=== PATIENT | female | born 1965 | race American Indian/Alaskan Native ===

== ENCOUNTER 2016-08-14 12:40 | Emergency (ER) | payer SELFPAY ==
[2016-08-14 13:12] VITALS: BP 113/69
--- NOTE | 2016-08-14 15:07 | Emergency Department Report ---
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 Patient denies inspiratory chest pain, productive sputum, syncope, chest pain, or nausea or vomiting. MD Complaint: shortness of breath, cough -: Gradual, week(s) Pain Scale: 0 Quality: burning, other (irritation) Consistency: intermittent Worsens With: coughing, inspiration, other (Beck exposure) Context: smoke/fume exposure Associated Symptoms: denies other symptoms - Related Data Previous Rx's Medication Instructions Recorded Last Taken Type ALBUTEROL Inhaler [ProAir HFA 2 puff IH QID PRN #1 inhalation 08/14/16 Unknown Rx Inhaler] Prednisone [predniSONE 10 mg 10 mg PO .TAPER #1 tab.ds.pk 08/14/16 Unknown Rx (6-Day Pack, 21 Tabs)] Allergies Allergy/AdvReac Type Severity Reaction Status Date / Time No Known Allergies Allergy Unverified 04/19/14 00:06 ED Review of Systems ROS: Stated complaint: CHEST BURNING Other details as noted in HPI Constitutional: denies: chills, fever Eyes: denies: eye pain, eye discharge, vision change ENT: denies: ear pain, throat pain Respiratory: cough, SOB with exertion (at work). denies: orthopnea, shortness of breath, wheezing Cardiovascular: denies: chest pain, palpitations, dyspnea on exertion, edema, syncope, paroxysmal nocturnal dyspnea Endocrine: no symptoms reported Gastrointestinal: denies: abdominal pain, nausea, vomiting, diarrhea Musculoskeletal: denies: back pain, joint swelling, arthralgia Skin: denies: rash, lesions Neurological: denies: headache, paresthesias ED Past Medical Hx - Past Medical History Previous Medical History?: No - Surgical History Past Surgical History?: No - Social History Smoking Status: Current Every Day Smoker Substance Use Type: None - Medications Home Medications: Home Medications Medication Instructions Recorded Confirmed Last Taken Type ALBUTEROL Inhaler [ProAir HFA 2 puff IH QID PRN #1 inhalation 04/02/17 Unknown Rx Inhaler] Prednisone [predniSONE 10 mg 10 mg PO .TAPER #1 tab.ds.pk 08/14/16 Unknown Rx (6-Day Pack, 21 Tabs)] ED Physical Exam - General Limitations: No Limitations General appearance: alert, in no apparent distress - Eye Eye exam: Present: normal appearance, PERRL, EOMI - ENT ENT exam: Present: normal exam, normal orophraynx, mucous membranes moist - Neck Neck exam: Present: normal inspection, full ROM. Absent: lymphadenopathy - Respiratory Respiratory exam: Present: normal lung sounds bilaterally. Absent: respiratory distress, wheezes, rales, rhonchi, stridor, accessory muscle use, decreased breath sounds, prolonged expiratory - Cardiovascular Cardiovascular Exam: Present: regular rate - Back Exam Back exam: Present: normal inspection - Neurological Exam Neurological exam: Present: alert, oriented X3 - Skin Skin exam: Present: warm, dry, intact ED Course Vital Signs 08/14/16 13:05 Temperature 98.3 F Pulse Rate 60 Respiratory 20 Rate Blood Pressure 113/69 O2 Sat by Pulse 99 Oximetry Critical care attestation.: If time is entered above; I have spent that time in minutes in the direct care of this critically ill patient, excluding procedure time. ED Disposition Clinical Impression: Allergic bronchitis Disposition: DISCHARGED TO HOME OR SELFCARE Is pt being admited?: No Condition: Stable Instructions: Chronic Bronchitis (ED) Prescriptions: ALBUTEROL Inhaler [ProAir HFA Inhaler] 2 puff IH QID PRN #1 inhalation PRN Reason: Shortness Of Breath Prednisone [predniSONE 10 mg (6-Day Pack, 21 Tabs)] 10 mg PO .TAPER #1 tab.ds.pk Referrals: PRIMARY CARE, [Primary Care Provider] - 3-5 Days Forms: Work/School Release Form(ED)
== END 2016-08-14 15:47 | disposition home or self-care (01) ==
LOC: ED 12:40
DX: J45.909 Unspecified asthma, uncomplicated (principal); F17.200 Nicotine dependence, unspecified, uncomplicated
CPT/HCPCS: 93005; 93010; 99282

== ENCOUNTER 2017-04-23 11:10 | Emergency (ER) | payer OTHER ==
[2017-04-23 11:29] VITALS: BP 118/67
--- NOTE | 2017-04-23 11:44 | Emergency Department Report ---
ED Rash HPI - HPI Chief Complaint: Skin Rash Stated Complaint: BODY ITCH Time Seen by Provider: 04/23/17 11:42 Duration: weeks, 2 Suspected Cause: Unknown Rash Symptoms: Yes Itching (generalized itching with rash), No Facial Swelling, No Tongue/Oral Swelling, No Breathing Difficulties, No Choking Sensation, No Wheezing/Dyspnea, No Peeling, No Blistering, No Fever, No Lightheaded, No Malaise, No Myalgias (pain is 0 out of 10) Other History: Patient here reports itching x 2 weeks. She is not sure whether or not there is bedbugs. She said that the machine maintenance technician checked mattress or bedbugs and he said that there were no bedbugs in the room. Denies any new food, medication. Denies any respiratory symptoms she said her and her child or just itching. Immunization up-to-date ED Review of Systems ROS: Stated complaint: BODY ITCH Other details as noted in HPI Comment: All other systems reviewed and negative Constitutional: no symptoms reported ENT: denies: throat pain, congestion Respiratory: no symptoms reported Cardiovascular: denies: chest pain, palpitations, dyspnea on exertion, orthopnea , edema, syncope, paroxysmal nocturnal dyspnea Gastrointestinal: denies: abdominal pain, nausea, vomiting Musculoskeletal: denies: back pain, joint swelling, arthralgia, myalgia Skin: rash, pruritus Neurological: denies: headache, numbness, paresthesias ED Past Medical Hx - Past Medical History Previous Medical History?: No - Surgical History Past Surgical History?: No - Family History Family history: no significant - Social History Smoking Status: Current Every Day Smoker Substance Use Type: None - Medications Home Medications: Home Medications Medication Instructions Recorded Confirmed Last Taken Type ALBUTEROL Inhaler [ProAir HFA 2 puff IH QID PRN #1 inhalation 08/14/16 Unknown Rx Inhaler] Prednisone [predniSONE 10 mg 10 mg PO .TAPER #1 tab.ds.pk 08/14/16 Unknown Rx (6-Day Pack, 21 Tabs)] Permethrin 5% [Acticin 5% CREAM] 1 applicatio TP ONCE 1 Days #1 tube 04/23/17 Unknown Rx hydrOXYzine HCL [Atarax] 25 mg PO Q6HR PRN 5 Days #20 tablet 04/23/17 Unknown Rx Rash Exam - Exam General: Vital signs noted. No distress. Alert and acting appropriately. This is a 51-year-old female well-nourished well-developed in no acute distress HEENT: No Periorbital Edema, No Conjuctival Injection, No Chemosis, No Perioral Edema, No Tongue Edema, No Uvular Edema, No Compromised Airway, No Drooling Lungs: Yes Good Air Exchange, No Wheezes, No Ronchi, No Stridor, No Cough, No Labored Respirations, No Retractions, No Use of Accessory Muscles, No Other Abnormal Lung Sounds Heart: Yes Regular (S1, S2. Regular rate and rhythm), No Murmur Skin: Yes Maculopapular Rash (maculopapular rash noted to belt line, linear with pouring under skin. Also noted to upper arms and web fingers.), Yes Erythema (erythema, maculopapular rash with burrowing, some linear), No Urticarial Rash, No Morbilliform rash, No Bulla(e), No Excoriations, No Weeping , No Tenderness, No Edema, No Encrustations, No Other Other: Positive: Abdomen Normal (soft, nontender to palpation in all quadrants. No guarding or rebound tenderness. Normal bowel sounds in all quadrants), Neurologic Normal (alert and oriented 3, normal gait. Normal speech.), Musculoskeletal Normal (no clubbing, cyanosis or edema. +2 pulses all extremities.) ED Course Vital Signs 04/23/17 11:27 Temperature 98.8 F Pulse Rate 80 Respiratory 18 Rate Blood Pressure 118/67 O2 Sat by Pulse 100 Oximetry - Reevaluation(s) Reevaluation #1: 04/23/17 13:50 Patient given Atarax 50 mg by mouth in the emergency room for itching. ED Medical Decision Making - Medical Decision Making ED course: Patient here reports itching 2 weeks. Pt found to have scabies. She was given Atarax 50 mg. Emergency room for itching which helped. I discussed patient that she will need to follow-up with primary care or sintering press operator in 2-3 days. I discussed her diagnosis, treatment plan and follow -up plan. Patient was understanding. Patient discharged home in stable condition with her child for emergency room prescription for Atarax and permethrin cream. She was given detailed explanation on how to use the cream. Critical care attestation.: If time is entered above; I have spent that time in minutes in the direct care of this critically ill patient, excluding procedure time. ED Disposition Clinical Impression: Scabies, Pruritic condition Disposition: DC-01 TO HOME OR SELFCARE Is pt being admited?: No Does the pt Need Aspirin: No Condition: Stable Instructions: Scabies (ED), Itchy Skin (ED) Additional Instructions: Please keep affected area clean and dry. Please follow up with sintering press operator [facility] primary care physician in 2-3 days and if you do not have to either you can follow-up at [facility]. Use permethrin cream as instructed Please do not drive or operate heavy machinery while taking Atarax as this medication can cause drowsiness You can experience itching and for up to 2 weeks after treatment. Prescriptions: hydrOXYzine HCL [Atarax] 25 mg PO Q6HR PRN 5 Days #20 tablet PRN Reason: Itching Permethrin 5% [Acticin 5% CREAM] 1 applicatio TP ONCE 1 Days #1 tube Referrals: PRIMARY CAREMD [Primary Care Provider] - 2-3 Days MICHAEL COLE MD [Staff Physician] - 2-3 Days [facility] [Outside] - 2-3 Days Forms: Work/School Release Form(ED)
[2017-04-23] MEDS ORDERED: ATARAX PO ONE (12:15)
== END 2017-04-23 14:35 | disposition home or self-care (01) ==
LOC: ED 11:10
DX: B86 Scabies (principal); F17.200 Nicotine dependence, unspecified, uncomplicated
CPT/HCPCS: 99282